=== PATIENT | female | born 1945 | race Caucasian/White ===

== ENCOUNTER → 2021-09-06 | Outpatient (REF) | payer MEDICARE, BC, SELFPAY | END | disposition home or self-care (01) | LOC: OLS.ACW300 05:00 | PROVIDERS: Visit Provider Family Medicine | DX: N39.0 Urinary tract infection, site not specified (principal); C78.01 Secondary malignant neoplasm of right lung; N18.30 Chronic kidney disease, stage 3 unspecified; E87.6 Hypokalemia; F05 Delirium due to known physiological condition | CPT/HCPCS: 87086; 87088; 87186 ==